=== PATIENT | male | born 1935 | race Caucasian/White ===

== ENCOUNTER 2016-12-16 21:13 | Emergency (ER) | payer OTHER, MEDICAID ==
[~2016-12-16] VITALS: Ht 167.6 cm; Wt 98.0 kg
[~2016-12-16 21:13] MED LIST: ATOR20TA PO; Aspirin PO
[2016-12-16] MEDS ORDERED: SODIUM CHLORIDE 0.9% 1,000 ML IV ONE (22:35)
[2016-12-16] MEDS ORDERED: TETANUS, DIPHTHERIA, PERTUSSIS VAC/PF 0.5ML (>7YR OLD) IM ONE (22:45)
[2016-12-16] MEDS ORDERED: HYDROCODONE/ACETAMINOPHEN 5/325MG TABLET PO ONE (22:45)
[2016-12-16] MEDS ORDERED: BACITRACIN ZINC OINT UDPKT TOP ONE (22:45)
[2016-12-16] MEDS ORDERED: LIDOCAINE HCL 1%/EPI 1:200,000 30 ML VIAL MC ONE (23:00)
[2016-12-16 23:02] LABS: BASOPHILS % 0.7 % (0.0-2.0); EOSINOPHILS % 2.6 % (0.0-5.0); HEMATOCRIT. 37.1 % (42.0-52.0); HEMOGLOBIN. 12.4 g/dL (14.0-18.0); LYMPHOCYTES % 27.7 % (20.0-50.0); MEAN CORPUSCULAR HEMOGLOBIN 29.6 pg (28.0-32.0); MEAN CORPUSCULAR VOLUME 88.3 fL (80.0-94.0); MEAN PLATELET VOLUME 8.3 fl (7.4-10.4); MONOCYTES % 10.2 % (2.0-8.0); NEUTROPHILS % 58.8 % (40.0-76.0); PLATELET 166 x1000/uL (130-400); RED CELL DISTRIBUTION WIDTH 16.1 % (11.6-14.6)
[2016-12-17] MEDS ORDERED: CLONIDINE 0.2MG TABLET PO ONE (01:15)
[2016-12-17 05:59] VITALS: BP 155/91
== END 2016-12-17 06:03 | disposition home or self-care (01) ==
LOC: ER 21:13
DX: S05.32XA Ocular laceration without prolapse or loss of intraocular tissue, left eye, initial encounter (principal); I10 Essential (primary) hypertension; E78.00 Pure hypercholesterolemia, unspecified; W18.30XA Fall on same level, unspecified, initial encounter; Y93.89 Activity, other specified; Y92.89 Other specified places as the place of occurrence of the external cause; Y99.8 Other external cause status
CPT/HCPCS: 12011; 36415; 70450; 70486; 73562; 80048; 85025; 90471; 90715; 96360; 99285; J7030

== ENCOUNTER 2016-12-23 12:49 | Emergency (ER) | payer OTHER, MEDICAID ==
[~2016-12-23] VITALS: Ht 170.2 cm; Wt 86.0 kg
[2016-12-23 13:08] VITALS: BP 142/72
== END 2016-12-23 16:54 | disposition home or self-care (01) ==
LOC: ER 16:39
DX: Z48.02 Encounter for removal of sutures (principal); I10 Essential (primary) hypertension; E78.00 Pure hypercholesterolemia, unspecified
CPT/HCPCS: 99281